=== PATIENT | female | born 1950 | race Caucasian/White ===

== ENCOUNTER 2022-04-01 15:08 | Outpatient (CLI) | payer MEDICARE, SELFPAY ==
--- NOTE | 2022-04-01 15:32 | XRR_ITS ---
PROCEDURE INFORMATION: Exam: XR Chest Exam date and time: 04/01/2022 3:32 PM Age: 71 years old Clinical indication: Cough; Prior surgery; Surgery type: Port; Patient HX: History of lung cancer TECHNIQUE: Imaging protocol: XR of the chest. Views: 2 views. COMPARISON: No relevant prior studies available. FINDINGS: Tubes, catheters and devices: Left Port-A-Cath. Lungs: Right hilar to upper lobe airspace opacities with bronchiectasis may reflect provided history of lung cancer, chest CT could further evaluate this. Emphysematous changes. Pleural spaces: Unremarkable. No pleural effusion. No pneumothorax. Heart/Mediastinum: Unremarkable. No cardiomegaly. Bones/joints: Unremarkable. XR/XR chest 2V* [id number] IMPRESSION: 1. Right hilar to upper lobe airspace opacities with bronchiectasis may reflect provided history of lung cancer, chest CT could further evaluate this. 2. Emphysematous changes.
== END 2022-04-01 15:09 | disposition home or self-care (01) ==
LOC: RAD 15:15
PROVIDERS: Visit Provider Nurse Practitioner Family
DX: R05.9 Cough, unspecified (principal)
CPT/HCPCS: 71046

== ENCOUNTER 2023-05-24 21:24 | Emergency (ER) | payer MEDICARE, SELFPAY ==
--- NOTE | 2023-05-24 21:25 | XRR_ITS ---
PROCEDURE INFORMATION: Exam: XR Abdomen Exam date and time: 05/24/2023 10:02 PM Age: 72 years old Clinical indication: Constipation TECHNIQUE: Imaging protocol: Radiologic exam of the abdomen. Views: Frontal supine view of the abdomen. 1 View. COMPARISON: CR XR chest 2V* [id number] 04/01/2022 3:32 PM FINDINGS: Gastrointestinal tract: Constipation without bowel dilation to indicate obstruction. Bones/joints: Unremarkable. XR/XR KUB [id number] IMPRESSION: Constipation without bowel dilation to indicate obstruction.
[2023-05-24 21:53] VITALS: BP 96/64; PULSE 96; RESP 16; TEMP 36.7; O2SAT 94; BMI 21.1
[2023-05-24 21:59] VITALS: RESP 85; O2SAT 99
--- NOTE | 2023-05-24 22:59 | W.ED.ABDPA2 ---
HPI - Abdominal Pain General: Chief Complaint: Abdominal Pain Stated Complaint: no bm for 4 days Time Seen by Provider: 05/24/23 21:35 History of Present Illness: 72-year-old female comes in today with no bowel movement for the last 4 days. Patient has small cell carcinoma of the lung and has been recently started on some chemotherapy. Patient believes the chemotherapy is causing her to have some constipation. Patient also occasionally uses OxyContin for her pain. Patient appears nontoxic. Patient appears in no pain at this time. Associated Symptoms: Reports constipation; Denies fever(s) Review of Systems Const: Denies: fever(s) GI: Reports: constipation PFSH ED PFSH: Social History Smoking and tobacco status: current every day smoker Physical Exam Const: COMMON NORMALS: alert HENMT: COMMON NORMALS: normocephalic HEAD & SCALP: normocephalic MOUTH: Normal oral and palatal mucosa present Neck/C-Spine: COMMON NORMALS: full ROM Resp: COMMON NORMALS: normal respiratory effort and clear to auscultation bilaterally AUSCULTATION: clear to auscultation bilaterally Cardio: COMMON NORMALS: regular rate and regular rhythm RATE: regular rate RHYTHM: regular rhythm GI: COMMON NORMALS: Soft to palpation AUSCULTATION: Yes normoactive bowel sounds PALPATION: Yes Soft to palpation and No Tenderness to palpation present (GI) PERCUSSION: normal to percussion Back/Pelvis: COMMON NORMALS: thoracic and lumbar spine normal to inspection Extremity: COMMON NORMALS: normal to inspection Neuro: SENSORIUM/ORIENTATION: Yes alert Skin: COMMON NORMALS: turgor normal GENERAL SKIN EXAM: turgor normal Course Vital Signs: Vital signs: Vital Signs Temperature 98.1 F 05/24/23 21:53 Pulse Rate 96 05/24/23 21:53 Respiratory Rate 85 H 05/24/23 21:59 Blood Pressure 96/64 05/24/23 21:53 Pulse Oximetry 99 05/24/23 21:59 Oxygen Delivery Me thod Room Air 05/24/23 21:59 MDM - Abdominal Pain Medical Decision Making Patient comes in today with constipation x4-day and bowel discomfort. Patient appears nontoxic. Patient appears in no pain. On exam abdomen soft with some normal active bowel sounds. Skin is warm and dry. Vital signs are normal. Differential diagnosis includes bowel obstruction, dehydration, constipation, impaction. KUB noted moderate constipation. Laboratory values were unremarkable. Reviewed exam with patient recommended lactulose as needed for constipation. Patient was also given 1 dose of methadone magnesia and 1 dose of lactulose in the ER. Patient was recommended to follow-up with specialist regarding her concerns for the chemotherapy drug causing the constipation and to discuss if there is other options that may be helpful for the constipation. Patient stated understanding and agreed to plan. Lab Data 05/24/23 22:40 Labs/Radiology: Radiology Impressions KUB X-Ray 05/24/23 21:25 IMPRESSION: Constipation without bowel dilation to indicate obstruction. Laboratory Results Sodium 134 mmol/L (136-145) L 05/24/23 22:40 Potassium 4.5 mmol/L (3.5-5.1) 05/24/23 22:40 Chloride 101 mmol/L (98-107) 05/24/23 22:40 Carbon Dioxide 24 mmol/L (22-29) 05/24/23 22:40 Anion Gap 13.5 (5-19) 05/24/23 22:40 BUN 16 mg/dL (8-23) 05/24/23 22:40 Creatinine 1.0 mg/dL (0.5-0.9) H 05/24/23 22:40 GFR Calculation Not Reportable 05/24/23 22:40 Glucose 93 mg/dL (65-115) 05/24/23 22:40 Calculated Osmolality 279 mOsm/kg (285-295) L 05/24/23 22:40 Calcium 9.0 mg/dL (8.5-10.5) 05/24/23 22:40 Total Bilirubin 0.2 mg/dL (0.15-1.2) 05/24/23 22:40 AST 25 U/L (0-32) 05/24/23 22:40 ALT 36 U/L (0-33) H 05/24/23 22:40 Alkaline Phosphatase 73 U/L (35-105) 05/24/23 22:40 Total Protein 6.8 g/dL (6.6-8.7) 05/24/23 22:40 Albumin 3.8 g/dL (3.5-5.2) 05/24/23 22:40 Globulin 3.0 g/dL (1.3-4.6) 05/24/23 22:40 Urine Color Light yellow (Yellow) 05/24/23 22:55 Urine Appearance Clear (CLEAR) 05/24/23 22:55 Urine pH 7 (5-7) 05/24/23 22:55 Ur Specific [place] 1.005 (1.005-1.030) 05/24/23 22:55 Urine Protein Neg (Negative) 05/24/23 22:55 Urine Glucose (UA) Norm (Normal) 05/24/23 22:55 Urine Ketones Negative (Negative) 05/24/23 22:55 Urine Blood Neg (Negative) 05/24/23 22:55 Urine Nitrate Negative (Negative) 05/24/23 22:55 Urine Bilirubin Neg (Negative) 05/24/23 22:55 Urine Urobilinogen Norm mg/dL (Negative) 05/24/23 22:55 Ur Leukocyte Esterase Negative (Negative) 05/24/23 22:55 Discharge Plan Discharge Patient Disposition: Home Clinical Impression: Constipation Condition: Stable Prescriptions: New lactulose 10 gram/15 mL solution 20 g PO BID PRN (Reason: constipation) Qty: 237 0RF No Action ondansetron 4 mg tablet,disintegrating 4 mg PO Q8H PRN (Reason: nausea and vomiting) Qty: 20 0RF Discharge Orders: Discharge ED (Routine); Ordered 05/24/23 Ordered By: Teddy López Referrals: Natali Wyman DO [Primary Care Provider] - Discharge Diet: Usual diet Discharge Activity: Increase activity as tolerated Patient Instructions: Constipation (ED) Activity Restrictions/Additional Instructions: Drink plenty of water and fluids. Continue with lactulose 30 mL twice a day as needed for constipation. Eat a diet rich in fibers foods and plenty of fresh fruits and vegetables. Follow-up with primary care for further instructions. Return to emergency department for worsening symptoms such as high fever, blood in vomit or stool, or new concerns. Coding Level of Care Code ED Finance Insurance Manager for Pradeep Prabhakar
[2023-05-24 23:11] LABS: Add Urine Microscopic? NO; Charge for UA Resulting for Rev
[2023-05-24 23:16] LABS: Alanine Aminotransferase 36 U/L (0-33); Albumin Level 3.8 g/dL (3.5-5.2); Alkaline Phosphatase 73 U/L (35-105); Aspartate Amino Transferase 25 U/L (0-32); Blood Urea Nitrogen 16 mg/dL (8-23); Carbon Dioxide 24 mmol/L (22-29); Chloride 101 mmol/L (98-107); Glucose 93 mg/dL (65-115); Osmolality Calculated 279 mOsm/kg (285-295); Sodium 134 mmol/L (136-145); Total Bilirubin 0.2 mg/dL (0.15-1.2); Total Protein 6.8 g/dL (6.6-8.7)
[2023-05-24 23:24] LABS: Bilirubin Urine Neg (Negative); Blood Urine Neg (Negative); Glucose Urine UA Norm (Normal); Ketones Urine Negative (Negative); Leukocyte Esterase Urine Negative (Negative); Nitrate Urine Negative (Negative); Protein Urine Neg (Negative); Specific Gravity, Urine 1.005 (1.005-1.030); Urine Appearance Clear (CLEAR); Urine Color Light yellow (Yellow); Urobilinogen Urine Norm (Negative); pH Urine 7 (5-7)
[2023-05-24 23:28] LABS: Anion Gap 13.5 (5-19); Potassium 4.5 mmol/L (3.5-5.1)
[2023-05-24 23:41] VITALS: BP 104/71; PULSE 84; RESP 14; O2SAT 94
[2023-05-24] MEDS: magnesium hydroxide 30 mL UDC PO (23:41)
[2023-05-24] MEDS: lactulose oral liq 20 gm/30 mL UDC PO (23:41)
== END 2023-05-24 23:44 | disposition home or self-care (01) ==
PROVIDERS: Emergency Provider Nurse Practitioner Family; PCP Family Medicine
DX: K59.00 Constipation, unspecified (principal); F17.210 Nicotine dependence, cigarettes, uncomplicated; C34.90 Malignant neoplasm of unspecified part of unspecified bronchus or lung; Z79.60 Long term (current) use of unspecified immunomodulators and immunosuppressants
CPT/HCPCS: 36415; 74018; 80053; 81003; 99284

== ENCOUNTER 2023-10-10 11:01 | Inpatient (IN) | payer MEDICARE, SELFPAY ==
[2023-10-10] VITALS (17 sets, daily range): BP systolic 118–133; BP diastolic 86–90; PULSE 85–137; RESP 15–26; TEMP 35.7–36.8; O2SAT 93–100; BMI 19.8; BMI 22.4
--- NOTE | 2023-10-10 11:05 | XR_ITS ---
WS: [id number] PORTABLE CHEST HISTORY: sob, history of lung cancer. COMPARISON: 04/01/2022 LEFT subclavian central line. Greater than 50% obscuration of the RIGHT lung. Dense area of consolidation throughout the majority o f the RIGHT thorax. There is increased RIGHT paratracheal soft tissue. There is also slight shift of the mediastinal structures to the RIGHT. Mild hazy opacification at the LEFT lung base. No pneumothor ax. Cardiac size: Obscured by the dense consolidation in the RIGHT thorax. Mediastinum/Aorta: RIGHT paratracheal increased soft tissue. No osseous abnormality seen. IMPRESSION: 1. Since the prior examination of 04/01/2022 increased consolidation throughout a large portion of the RIGHT thorax. Probably combination of atelectasis, pleural fluid. Pneumonia and neoplasm not excluded . Chest CT with IV contrast would be beneficial 2. RIGHT paratracheal increased soft tissue. Adenopathy and neoplasm and atelectasis within the diffe rential. 3. No pneumothorax.
--- NOTE | 2023-10-10 11:11 | ED_ITS ---
HPI - SOB/Dyspnea 2 General: Chief Complaint: Shortness of Breath/Dyspnea Stated Complaint: sob, low o2, lung cancer Time Seen by Provider: 10/10/23 11:03 Source: patient Mode of arrival: ambulatory Limitations: no limitations History of Present Illness: HPI Narrative: 73-year-old female who has a history of lung cancer is a chronic smoker she states she is not on chemo or radiation at this time she states that she has had increasing shortness of breath of the last 2 days with much increased today. Patient was in the 60s here when she arrived with her pulse ox. She is in distress she is currently on a nonrebreather she denies any fevers states she has had a cough but she is having extreme dyspnea. Associated symptoms: Deny abdominal pain, chest pain, fever(s), nausea or vomiting Review of Systems 2 Const: Denies: fever(s), chills, body aches or change in appetite ENMT: Denies: throat pain or dental pain Card: Denies: chest pain Resp: Reports: dyspnea and non-productive cough GI: Denies: abdominal pain, nausea, vomiting or diarrhea Musc: Denies: neck pain or back pain Skin/Breast: Denies: rash Neuro: Denies: headache(s) PFSH ED 2 PFSH: Social History Smoking and tobacco/nicotine status: current every day tobacco/nicotine user Physical Exam 2 Const: COMMON NORMALS: patient oriented x3 GENERAL APPEARANCE: in distress HENMT: COMMON NORMALS: normocephalic and atraumatic HEAD & SCALP: n ormocephalic and atraumatic Eye: COMMON NORMALS: Equal, round and reactive pupils present and EOMs intact bilaterally PUPIL: Yes Equal, round and reactive pupils present Neck/C-Spine: COMMON NORMALS: full ROM and supple Chest: COMMONS NORMALS: normal inspection of the chest and normal palpation of entire chest wall Resp: EFFORT & INSPECTION: Yes tachypneic and Yes respiratory distress A USCULTATION: wheezes Cardio: COMMON NORMALS: regular rhythm and No murmurs present (Cardio) R ATE: tachycardic RHYTHM: regular rhythm GI: COMMON NORMALS: Normal to inspection, nondistended, normoactive bowel sounds present, Soft to palpation, non-tender and no masses PALPATION: Yes Soft to palpation Extremity: COMMON NORMALS: normal to inspection and full ROM Neuro: COMMON NORMALS: patient oriented x3, moves all extremities and no focal motor deficits Psych: COMMON NORMALS: mental status grossly normal, Normal thought process present and cooperative THOUGHT PROCESS: Normal thought process present Skin: COMMON NORMALS: no rashes or lesions noted and no wounds GENERAL SKIN EXAM: no rashes or lesions noted Course 2 Vital Signs: Vital signs: Vital Signs Temperature 96.2 F L 10/10/23 11:03 Pulse Rate 109 H 10/10/23 11:42 Respiratory Rate 21 H 10/10/23 11:22 Pulse Oximetry 100 10/10/23 11:42 Oxygen Delivery Me thod BiPAP 10/10/23 11:22 Fraction of Inspir ed Oxygen 50 10/10/23 11:42 MDM - SOB/Dyspnea Medical Decision Making Patient presents here with dyspnea she had to be placed on BiPAP due to severe hypoxia she is improved greatly here on BiPAP x-ray does show a very large pleural effusion she does have a history of cancer will start on IV antibiotics I spoke to the hospitalist and will admit at this time. Medical Records I reviewed the patient's medical records. Lab Data I reviewed the patient's lab results. 10/10/23 11:15 10/10/23 11:15 Labs/Radiology: Laboratory Results WBC 7.88 10^3/uL (3.29-11.43) 10/10/23 11:15 RBC 4.07 10^6/uL (3.85-5.65) 10/10/23 11:15 Hgb 11.70 g/dL (11.27-16.99) 10/10/23 11:15 Hct 37.4 % (36-47) 10/10/23 11:15 MCV 91.9 fl (85-98) 10/10/23 11:15 MCH 28.7 pg (27-33) 10/10/23 11:15 MCHC 31.3 g/dL (30-55) 10/10/23 11:15 RDW 15.9 % (12.1-15.1) H 10/10/23 11:15 Plt Count 350 10^3/cmm (157-399) 10/10/23 11:15 MPV 10.4 fL (7.4-10.4) 10/10/23 11:15 Neut % (Auto) 83.3 % 10/10/23 11:15 Lymph % (Auto) 7.9 % 10/10/23 11:15 Crowley % (Auto) 7.7 % 10/10/23 11:15 Eos % (Auto) 0.3 % 10/10/23 11:15 Baso % (Auto) 0.4 % 10/10/23 11:15 Neut # (Auto) 6.57 10^3/uL (1.8-7.7) 10/10/23 11:15 Lymph # (Auto) 0.6 10^3/uL (0.8-4.8) L 10/10/23 11:15 Crowley # (Auto) 0.6 10^3/uL (0.2-0.9) 10/10/23 11:15 Eos # (Auto) 0.0 10^3/uL (0.0-0.8) 10/10/23 11:15 Baso # (Auto) 0.0 10^3/uL (0.0-0.1) 10/10/23 11:15 Nucleated RBC % (auto) 0 % 10/10/23 11:15 Nucleated RBCs # 0.0 /100WBC 10/10/23 11:15 PT 14.10 SECONDS (12.1-14.9) 10/10/23 11:15 INR 1.06 (0.8-1.2) 10/10/23 11:15 Specimen Type Venous 10/10/23 11:02 Sample Site Radial, left 10/10/23 11:02 ABG pH 7.36 (7.35-7.45) 10/10/23 11:02 ABG pCO2 42.9 mmHg (35-45) 10/10/23 11:02 ABG pO2 47.5 mmHg (80.0-100.0) L 10/10/23 11:02 ABG PO2/FiO2 Ratio 0 10/10/23 11:02 ABG HCO3 24.2 mmol/L (22-26) 10/10/23 11:02 ABG Base Excess -1.4 mmol/L (-2.0-2.0) 10/10/23 11:02 García Test Pos 10/10/23 11:02 Hematocrit 37.7 % (37-47) 10/10/23 11:02 Hgb O2 Saturation 79.1 % (95-100) L 10/10/23 11:02 Carboxyhemoglobin 3.9 %THgb (0.4-20.1) 10/10/23 11:02 Methemoglobin 0.5 % (0.4-1.5) 10/10/23 11:02 Total Hemoglobin 12.3 g/dL (12-16) 10/10/23 11:02 O2 Delivery Device Bipap 10/10/23 11:02 FiO2 90.0 % 10/10/23 11:02 Photoengraving Proofer ID [place] 10/10/23 11:02 Sodium 134 mmol/L (136-145) L 10/10/23 11:15 Potassium 3.7 mmol/L (3.5-5.1) 10/10/23 11:15 Chloride 97 mmol/L (98-107) L 10/10/23 11:15 Carbon Dioxide 23 mmol/L (22-29) 10/10/23 11:15 Anion Gap 17.7 (5-19) 10/10/23 11:15 BUN 14 mg/dL (8-23) 10/10/23 11:15 Creatinine 0.8 mg/dL (0.5-0.9) 10/10/23 11:15 GFR Calculation Not Reportable 10/10/23 11:15 Glucose 178 mg/dL (65-115) H 10/10/23 11:15 Calculated Osmolality 283 mOsm/kg (285-295) L 10/10/23 11:15 Calcium 9.4 mg/dL (8.5-10.5) 10/10/23 11:15 Total Bilirubin 0.3 mg/dL (0.15-1.2) 10/10/23 11:15 AST 18 U/L (0-32) 10/10/23 11:15 ALT 11 U/L (0-33) 10/10/23 11:15 Alkaline Phosphatase 83 U/L (35-105) 10/10/23 11:15 NT-Pro-B Natriuret Pep 609 pg/mL (0-450) H 10/10/23 11:15 Total Protein 6.9 g/dL (6.6-8.7) 10/10/23 11:15 Albumin 3.4 g/dL (3.5-5.2) L 10/10/23 11:15 Globulin 3.5 g/dL (1.3-4.6) 10/10/23 11:15 Influenza Type A Ag negative (Negative) 10/10/23 11:16 Influenza Type B Ag negative (Negative) 10/10/23 11:16 SARS-CoV-2 Ag (Rapid) negative (Negative) 10/10/23 11:16 All radiology interpretation(s) finalized by discharge EKG Data EKG 1: I personally reviewed and interpreted this EKG as follows: EKG Interpretation Date: 10/10/23 EKG interpretation time: 11:47 Interpretation: sinus tach hr [address] or t wave abnormalities qrs 91 qtc 378 Critical Care Time 2 Critical Care Time: Critical Care Time: Yes Total Critical Care Time: 40 Attestation: The high probability of a clinically significant, sudden or life threatening deterioration of the patient's resp system(s) required my full and direct attention, intervention and personal management. The critical care time is as shown. This time is in addition to time spent performing any reported procedures but includes the following: [x] Data and vital sign review and interpretation [x] Patient assessment, examination and intervention [x] Documentation [x] Medication orders and management Discharge Plan Discharge Admit Provider: Batsheva Maki Condition: Stable Prescriptions: No Action oxycodone 5 mg tablet 5 - 10 mg PO BID PRN (Reason: Pain) Coding Level of Care Code ED Mergers [employer] Acquisitions Associate for Pradeep Prabhakar
--- NOTE | 2023-10-10 11:15 | PC.PHAR ---
NEENA AT [facility] PT PICKED UP #[id number] OXYCODONE IR 5 MG ON 10/07/2023
[2023-10-10] MEDS: methylPREDNISolone sod succ 125 mg/2 mL INJ IV (11:21)
[2023-10-10] MEDS: albuterol 2.5 mg/3 mL Neb INHALATION (11:22)
[2023-10-10] MEDS: ipratropium-albuterol 3 mL Neb INHALATION ×4 (11:22→23:44)
[2023-10-10 11:29] LABS: ABG PCO2 42.9 mmHg (35-45); ABG PH Result 7.36 (7.35-7.45); Arterial Blood Gas Hematocrit 37.7 % (37-47); Base Excess ABG -1.4 mmol/L (-2.0-2.0); Blood Gas Allen Test Pos; Blood Gas Operator Identificat MONRO; Blood Gas Sample Site Radial, left; Carboxyhemoglobin 3.9 %THgb (0.4-20.1); HCO3 ABG 24.2 mmol/L (22-26); HGB O2 Sat 79.1 % (95-100); Methemoglobin 0.5 % (0.4-1.5); Oxygen Device BIPAP; PO2 ABG 47.5 mmHg (80.0-100.0); PO2 FiO2 Ratio Arterial Blood 0; Total Hemoglobin 12.3 g/dL (12-16)
[2023-10-10 11:32] LABS: Basophils % 0.4 %; Eosinophils % 0.3 %; Hematocrit 37.4 % (36-47); Lymphocytes # 0.6 10^3/uL (0.8-4.8); Lymphocytes % 7.9 %; Mean Corpuscular HGB Conc 31.3 g/dL (30-55); Mean Corpuscular Hemoglobin 28.7 pg (27-33); Mean Corpuscular Volume 91.9 fl (85-98); Mean Platelet Volume 10.4 fL (7.4-10.4); Monocytes # 0.6 10^3/uL (0.2-0.9); Monocytes % 7.7 %; Neutrophils # 6.57 10^3/uL (1.8-7.7); Neutrophils % 83.3 %; Nucleated Red Blood Cells % 0 %; Platelet Count 350 10^3/cmm (157-399); Red Blood Count 4.07 10^6/uL (3.85-5.65); Red Cell Distribution Width 15.9 % (12.1-15.1); White Blood Count 7.88 10^3/uL (3.29-11.43)
[2023-10-10 11:43] LABS: INR 1.06 (0.8-1.2)
--- NOTE | 2023-10-10 11:47 | ECG_ITS ---
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 Measurements Intervals [place] Rate: 107 P: 26 MA: 191 QRS: 96 QRSD: 91 T: 13 QT: 315 QTc: 422 Interpretive Statements SINUS TACHYCARDIA BORDERLINE RIGHT AXIS DEVIATION [QRS AXIS > 90] ABNORMAL RHYTHM ECG No previous ECG available for comparison Electronically Signed On 10-10-2023 15:56:12 GREASE RACK WORKER by Jaxon iDana M.D. [id number]
[2023-10-10 11:56] LABS: Influenza A by IFA negative (Negative); Influenza B by IFA negative (Negative); SARS Covid-2 Antigen negative (Negative)
[2023-10-10 12:03] LABS: Blood Gas Sample Type Venous
[2023-10-10 12:05] LABS: Alanine Aminotransferase 11 U/L (0-33); Albumin Level 3.4 g/dL (3.5-5.2); Alkaline Phosphatase 83 U/L (35-105); Blood Urea Nitrogen 14 mg/dL (8-23); Calcium 9.4 mg/dL (8.5-10.5); Carbon Dioxide 23 mmol/L (22-29); Chloride 97 mmol/L (98-107); Creatinine Clr Calc Pharmacy 45.7834; Globulin 3.5 g/dL (1.3-4.6); Glucose 178 mg/dL (65-115); NT Pro B Type Natriuretic Pept 609 pg/mL (0-450); Osmolality Calculated 283 mOsm/kg (285-295); Sodium 134 mmol/L (136-145); Total Bilirubin 0.3 mg/dL (0.15-1.2); Total Protein 6.9 g/dL (6.6-8.7)
[2023-10-10 12:30] LABS: Anion Gap 17.7 (5-19); Aspartate Amino Transferase 18 U/L (0-32); Potassium 3.7 mmol/L (3.5-5.1)
--- NOTE | 2023-10-10 14:01 | CTR_ITS ---
PROCEDURE INFORMATION: Exam: CTA Chest With Contrast Exam date and time: 10/10/2023 4:03 PM Age: 73 years old Clinical indication: Shortness of breath; Additional info: Large new pleural effusion, large right pleural effusion. Assess for underlying mass TECHNIQUE: Imaging protocol: Computed tomographic angiography of the chest with contrast. Exam focused on the arteries. 3D rendering (Not supervised by radiologist): MIP and/or 3D reconstructed images were created by the technologist. Radiation optimization: All CT scans at this facility use at least one of these dose optimization techniques: automated exposure control; mA and/or kV adjustment per patient size (includes targeted exams where dose is matched to clinical indication); or iterative reconstruction. Contrast material: OMNI 350; Contrast volume: 80 ml; Contrast route: INTRAVENOUS (IV); REPORTING DATA: Count of CT and Cardiac NM exams in prior 12 months: This patient has received 0 known CTs and 0 known cardiac nuclear medicine studies in the 12 months prior to the current study. COMPARISON: CR XR chest 1V portable [id number] 10/10/2023 11:28 AM RADIATION DOSE METRICS: Total DLP (mGy-cm): 292.61 FINDINGS: Pulmonary arteries: No central or segmental pulmonary emboli. Aorta: No aortic aneurysm or dissection. Lungs: Right middle and lower lobes almost entirely collapsed. Aerated portions of the right upper lung and left lung demonstrate no focal consolidation or suspicious nodule. In the right lower lung there is a 4.4 x 2.7 cm masslike density on series 6, image 336 for example. Masslike consolidation in the right suprahilar/paramediastinal region as well which is of different density than the adjacent atelectatic changes. Pleural spaces: No pneumothorax. No pleural effusion. Heart: Coronary calcifications. No pericardial effusion. Lymph nodes: 1.3 cm prevascular node on series 4, image 18 Bones/joints: No acute findings. Soft tissues: No acute findings. CT/CT angio chest PE protcl [id number] IMPRESSION: Large right sided pleural effusion. Right suprahilar paramediastinal and right lower lobe masslike densities are present. Recommend repeat CT after thoracentesis for improved characterization.
[2023-10-10] MEDS: azithromycin 500 MG in sodium chloride 0.9% 250 ML 250 MG IV (14:20)
[2023-10-10] MEDS: cefTRIAXone 1,000 MG in sodium chloride 0.9% (plus) 50 ML 100 MG IV (15:28)
[2023-10-10] MEDS: iohexol 350 mg/mL 500 mL Btl (per mL) IV (16:09)
--- NOTE | 2023-10-10 17:18 | P.HP_ITS ---
Providers/Chief Complaint 2 Admitting Physician: Batsheva Maki MD Primary Care Provider: Natali Wyman DO Chief Complaint: sob, low o2, lung cancer History of Present Illness See Van is a 73 year old female who presented to the ER today with c/o increasing shortness of breath over the past 4-5 days, History is very limited at this time. Patient is on Bipap and has a hard time talking, able to answer direct questions. She denies any fever, chills, expectoration, hemoptysis over this time frame. She was saturating 60% on RA on arrival to ER and required placement of Bipap due to increased work of breathing. She is found to have a large right pleural effusion on CXR. Patient denies any past h/o lung malignancy. She is a smoker. Denies past pleural effusion. 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 her is not currently available to provide any additional history. Review of Systems 2 General: Reports: ROS unobtainable due to medical condition Medications/Allergies Home Medications Medication Instructions Recorded Confirmed Last Taken Type oxycodone 5 mg tablet 5 - 10 mg PO BID PRN Pain 10/10/23 10/10/23 Unknown History Allergies Allergy/AdvReac Type Severity Reaction Status Date / Time Sulfa (Sulfonamide Allergy ADR-Vomitin Verified 10/10/23 11:03 Antibiotics) g PFSH Acute 2 PFSH: Social History Smoking and tobacco/nicotine status: current every day tobacco/nicotine user Vitals/I&O/Wt Last Vital Signs Temp 96.2 F L 10/10/23 11:03 Pulse 88 10/10/23 16:16 Resp 21 H 10/10/23 11:22 BP 125/90 10/10/23 13:18 Pulse Ox 98 10/10/23 16:16 O2 Del Method BiPAP 10/10/23 13:44 FiO2 40 10/10/23 16:16 10/10/23 10/10/23 10/10/23 06:59 14:59 22:59 Intake Total 300 / 300 Balance 300 / 300 Weight last 48 hrs Weight 53.751 kg Weight 47.627 kg Physical Exam 2 Narrative: General: Currently on a Bipap , lethargic, wakes up to answer her name and orientation questions, but unable to have a prolonged conversation. HEENT: PERRLA, pupils bilaterally equal and reactive, pallors not present Chest: reduced breath sounds right side , scattered crackles left lung CVS: S1-S2 regular, no murmurs, no tachycardia, no gallops, no rubs Abdomen: Soft, nontender, no organomegaly, bowel sounds present Neuro: No focal deficits, no facial deformity, AO x3, power 5/5 in all limbs Data 10/10/23 11:15 10/10/23 11:15 Micro: Microbiology 10/10/23 13:20 Blood Culture - Preliminary Blood SPECIMEN COLLECTED 10/10/23 13:16 Blood Culture - Preliminary Blood SPECIMEN COLLECTED ABG Interpretation 1: VBG 10/10/23 11:02 ABG pH 7.36 ABG pCO2 42.9 ABG pO2 47.5 L ABG HCO3 24.2 ABG Base Excess -1.4 Other data: CXR- large right pleural effusion A&P Assessment and plan (1) Pleural effusion on right: (2) Suspected lung cancer: (3) Hypoxic respiratory failure: Plan 73 F with no past history of known respiratory failure p/w 5 days of worsening dyspnea, found to have large right sided pleural effusion. Unknown past history at this time Profound hypoxia with Sp02 down to 60% on RA, needing Bipap ventilation due to concern for respiratory fatigue Able to be weaned down to 5lpm supplemental 02 however with minimal exertion of transferring from stretcher to chair needed placement of Bipap again. Differentials include underlying malignancy vs possible pneumonia Started on empiric CTX and azithromycin which can continue for now Chect CTA chest to evaluate for PE and underlying malignancy Diagnostic and therapeutic thoracentesis ordered Attestations 2 Medical Necessity Statement*: > 2 midnight admission is anticipated for acute hypoxic respiratory failure, large pleural effusion needing thoracentesis for diagnostics and relief of symptoms Coding Level of Care Code Acute Code for Chg Fwd Diagnoses Pleural effusion on right J90 Suspected lung cancer R68.89 Hypoxic respiratory failure J96.91
--- NOTE | 2023-10-10 22:50 | XRR_ITS ---
PROCEDURE INFORMATION: Exam: XR Abdomen Exam date and time: 10/11/2023 12:03 AM Age: 73 years old Clinical indication: Abdominal pain; Localized; Right lower quadrant (rlq); Patient HX: Rlq for couple weeks per patient TECHNIQUE: Imaging protocol: Radiologic exam of the abdomen. Views: Frontal supine view of the abdomen. 1 View. COMPARISON: CR XR KUB [id number] 05/24/2023 10:02 PM FINDINGS: Gastrointestinal tract: [id number] constipation without bowel dilation to indicate obstruction. Organs: Contrast in the urinary bladder in the renal collecting systems. Bones/joints: Unremarkable. XR/XR abdomen 1V* [id number] IMPRESSION: [id number] constipation without bowel dilation to indicate obstruction.
[2023-10-10] MEDS: morphine 4 mg/mL SDV 1 mL 1 MG IVP (23:49)
[2023-10-11] VITALS (19 sets, daily range): BP systolic 110–132; BP diastolic 68–82; PULSE 91–110; RESP 18–29; TEMP 36.3–36.8; O2SAT 91–97
[2023-10-11] MEDS: ipratropium-albuterol 3 mL Neb INHALATION ×5 (04:15→19:18)
[2023-10-11 05:11] LABS: Basophils % 0.1 %; Hematocrit 34.4 % (36-47); Lymphocytes # 0.6 10^3/uL (0.8-4.8); Lymphocytes % 8.8 %; Mean Corpuscular HGB Conc 32.3 g/dL (30-55); Mean Corpuscular Hemoglobin 29.3 pg (27-33); Mean Corpuscular Volume 90.8 fl (85-98); Mean Platelet Volume 10.1 fL (7.4-10.4); Monocytes # 0.7 10^3/uL (0.2-0.9); Monocytes % 10.4 %; Neutrophils # 5.63 10^3/uL (1.8-7.7); Neutrophils % 80.4 %; Nucleated Red Blood Cells % 0 %; Platelet Count 347 10^3/cmm (157-399); Red Blood Count 3.79 10^6/uL (3.85-5.65); Red Cell Distribution Width 16.1 % (12.1-15.1); White Blood Count 7.01 10^3/uL (3.29-11.43)
[2023-10-11 05:31] LABS: Alanine Aminotransferase 15 U/L (0-33); Albumin Level 3.2 g/dL (3.5-5.2); Alkaline Phosphatase 77 U/L (35-105); Aspartate Amino Transferase 19 U/L (0-32); Blood Urea Nitrogen 11 mg/dL (8-23); Calcium 9.4 mg/dL (8.5-10.5); Carbon Dioxide 24 mmol/L (22-29); Chloride 99 mmol/L (98-107); Globulin 3.1 g/dL (1.3-4.6); Glucose 124 mg/dL (65-115); Lactate Dehydrogenase 274 U/L (135-214); Osmolality Calculated 285 mOsm/kg (285-295); Sodium 137 mmol/L (136-145); Total Bilirubin 0.2 mg/dL (0.15-1.2); Total Protein 6.3 g/dL (6.6-8.7)
[2023-10-11] MEDS: pantoprazole DR 40 mg Tablet PO (08:56)
[2023-10-11] MEDS: sennosides-docusate Tablet 2 TAB PO (08:56)
[2023-10-11] MEDS: azithromycin 250 mg Tablet 500 MG PO (08:56)
--- NOTE | 2023-10-11 09:05 | PC.CHAP ---
Pastoral Care Encounter/Spiritual Assessment Type of Contact [] Declined housing and residence life director visit [] Patient/Family/Request visit [] Outpatient visit [] Follow-up visit [] Physician referral [] Code/Alert [] Routine visit [] Staff referral [] Actively dying [] Patient sleeping [] Family support [] [] Out of room [] Palliative care [] [] Receiving care in room [] Pre-surgical visit [] Trauma [] Long length of stay [] ICU visit [x] Other:Covid. No visit. Relational/Emotional Strength [] Patient feels connected with others/family/visitors/staff [] Distress [] Loneliness/isolation [] Abandonment Spirituality of Patient [] Person of Op[place] [] Attends Latter-Day of their [place] [] Believes in Prayer [] Reads Bible or Scientologist materials [] There are Spiritual issues to be addressed Grain Elevator Agent Interventions [] Prayer [] Active listening [] Non-anxious presence [] Spiritual/emotional support [] Crisis/trauma care [] Spiritual counseling [] Bereavement support [] Provided bereavement packet [] Provided Bible/devotional materials [] Provided toy/stuffed animal, coloring book to patient or family member [] Provided Communion [] Anointing/[place] [] Salvation [] Completed spiritual assessment [] Other: Impact on Illness or Injury [] Angry [] Fearful [] Anxious [] Often cries [] Exhaustion [] Unable to work [] Unable to attend christianity [] Unable to walk/stand [] Unable to read [] Unable to drive [] Unable to eat/drink [] Unable to sleep [] Unable to be with family [] Patient intubated [] Other: Summary Time spent with patient
--- NOTE | 2023-10-11 10:52 | XR_ITS ---
WS: [id number] PORTABLE CHEST HISTORY: Post thoracentesis COMPARISON: 10/10/2023 No pneumothorax status post RIGHT thoracentesis. Slightly better aeration throughout the RIGHT lung. There are still small layering RIGHT pleural effu juan jose. Hazy attenuation throughout the RIGHT lung. Chronic emphysematous changes LEFT lung. Cardiac size: Normal. Mediastinum/Aorta: RIGHT paratracheal soft tissue mass. There is an area of increased attenuation whi ch is masslike. No osseous abnormality seen. IMPRESSION: 1. No pneumothorax status post RIGHT thoracentesis. 2. Better aeration throughout the RIGHT lung. There is now hazy attenuation throughout the lung and a small residual RIGHT pleural effusion. The hazy attenuation may all be atelectasis. Reexpansion pulm onary edema should be considered due to the change in the lung appearance. 3. RIGHT paratracheal soft tissue suspicious for mass.
[2023-10-11 11:48] LABS: Creatinine Body Fluid 0.49 (0.5-0.9); Cyto Order Verification Order Verified
[2023-10-11 11:49] LABS: Total Protein Pleural Fluid 3.7 g/dL
[2023-10-11 11:53] LABS: LDH Pleural Fluid 336 U/L
--- NOTE | 2023-10-11 14:01 | US_ITS ---
WS: [id number] ULTRASOUND-GUIDED THORACENTESIS, RIGHT HISTORY: large right pleural effusion Procedure, risks, and complications were explained to the patient. With the patient in an upright pos ition, the skin over the RIGHT posterior thorax was cleansed with ChloraPrep and anesthetized with 1% buffered lidocaine. A 5 Citizen Of [place] Yueh needle is inserted into the pleural fluid without complication. Approximately 1200 cc of clear yellow pleural fluid is removed without difficulty. Specimen collected for analysis as requested. IMPRESSION: 1. RIGHT thoracentesis yielding 1200 cc of fluid. 2. Chest radiograph to follow to evaluate for pneumothorax.
[2023-10-11] MEDS: cefTRIAXone 1,000 MG in sodium chloride 0.9% (plus) 50 ML 100 MG IV (16:16)
[2023-10-11] MEDS: acetaminophen 325 mg Tablet 650 MG PO (16:17)
--- NOTE | 2023-10-11 17:09 | P.PN_ITS ---
Subjective 2 Subjective: Status post thoracentesis today yielding 1200 cc fluid. Exudative exudative fluid per lights criteria. Cytology pending. LDH not significantly elevated. pH normal. Per additional history obtained today, patient has a history of lung cancer on the right side. She is under treatment at outside hospital in [facility]. Records have been requested. Patient states that she has not been on chemotherapy in many months, however unable to tell me if she was taken off due to progression of cancer versus inability to get the medication. She states she does not want to go back to [place] for her cancer treatment and wants a referral to our cancer center here. She has never had a pleural effusion before. Discussed with her that should this director of outpatient services to be malignant effusion it corresponds with worsening disease however without having prior records I am unable to say this with certainty. Discontinue antibiotics today in light of updated history. likely this effusion is malignant. Medications: Reviewed: Yes Vitals/I&O/Wt Last Vital Signs Temp 97.5 F L 10/11/23 11:59 Pulse 93 10/11/23 15:29 Resp 22 H 10/11/23 15:29 BP 112/68 10/11/23 11:59 Pulse Ox 94 10/11/23 15:29 O2 Del Method Nasal Cannula 10/11/23 15:29 O2 Flow Rate 5 10/11/23 15:20 FiO2 40 10/11/23 04:15 10/11/23 10/11/23 10/11/23 06:59 14:59 22:59 Intake Total 600 / 600 50 / 650 Balance 600 / 600 50 / 650 Weight last 48 hrs Weight 56.387 kg Weight 53.751 kg Weight 47.627 kg Physical Exam 2 Narrative: General: No acute distress, AO x3 HEENT: PERRLA, pupils bilaterally equal and reactive, pallors not present Chest: Normal vesicular breath sounds, no added sounds, equal good air entry bilaterally CVS: S1-S2 regular, no murmurs, no tachycardia, no gallops, no rubs Abdomen: Soft, nontender, no organomegaly, bowel sounds present Neuro: No focal deficits, no facial deformity, AO x3, power 5/5 in all limbs Data 10/11/23 04:42 10/11/23 04:42 Micro: Microbiology 10/10/23 13:20 Blood Culture - Preliminary Blood NEGATIVE TO DATE 10/10/23 13:16 Blood Culture - Preliminary Blood NEGATIVE TO DATE A&P Assessment and plan (1) Pleural effusion on right: (2) Suspected lung cancer: (3) Hypoxic respiratory failure: Plan 73 F with reported history of lung cancer of the right lung under treatment from cancer center in [facility]. Unable to state what treatment she is on however does states she has not had any chemotherapy in several months. She is status post thoracentesis today yielding 1200 cc of fluid. Exudative effusion per lights criteria. Patient is doing much better with regards to her respiratory status since undergoing thoracentesis. She is currently on a nasal cannula with supplemental O2 at 4 L/min. Has not needed BiPAP since her thoracentesis. She is much more alert awake and cooperative. Suspect this effusion to be malignant in nature, awaiting cytology. Discontinue antibiotics given updated history of known malignancy. Attestations 2 Medical Necessity Statement*: Status post thoracentesis today. Anticipate discharge tomorrow if respiratory status remains stable Coding Level of Care Code Acute Code for Chg Fwd Moderate MDM includes number and complexity of problems actively addressed during encounter, amount and/or complexity of data reviewed/ordered and described risk of complication, morbidity or mortality of management as documented Diagnoses Pleural effusion on right J90 Suspected lung cancer R68.89 Hypoxic respiratory failure J96.91
[2023-10-11] MEDS: oxyCODONE 5 mg IR Tab/Cap PO (17:45)
[2023-10-12] VITALS (13 sets, daily range): BP systolic 108–125; BP diastolic 68–74; PULSE 86–100; RESP 17–22; TEMP 36.4–36.8; O2SAT 87–99
[2023-10-12] MEDS: ipratropium-albuterol 3 mL Neb INHALATION ×3 (00:32→07:30)
[2023-10-12] MEDS: acetaminophen 325 mg Tablet 650 MG PO ×2 (01:04→12:39)
--- NOTE | 2023-10-12 04:24 | PC.NURSE ---
This nurse was called to the patient room with the c/o the patient refusing her nasal canula. The patient was stating the oxygen is poison and it is going to kill her. We attempted multiple approaches to convince her that there was no poison present. She was reluctant, but agreed to try using a different nc and flowmeter. When asked if it was still poison, she stated I'll let you know when I . Prior to this the patient has been compliant with wearing oxygen and A&Ox4. The patient is still alert and oriented, aside from this. Dr. Lira called and notified of this and ordered a STAT ABG. Orders placed and awaiting draw.
--- NOTE | 2023-10-12 04:30 | PC.NURSE ---
See nurse's note prior to this. Patient is refusing o2 and claiming it is poison. Reluctantly the patient agreed to wear the nc
[2023-10-12 04:46] LABS: ABG PCO2 38.2 mmHg (35-45); ABG PH Result 7.46 (7.35-7.45); Alveolar-Arterial Oxygen Gradi 5.5 mmHg (5-10); Arterial Blood Gas Hematocrit 34.4 % (37-47); Base Excess ABG 3.1 mmol/L (-2.0-2.0); Blood Gas Allen Test Pos; Blood Gas Sample Site Radial, right; Blood Gas Sample Type Arterial; Carboxyhemoglobin 1.2 %THgb (0.4-20.1); HCO3 ABG 27.1 mmol/L (22-26); HGB O2 Sat 91.3 % (95-100); Ionized Calcium Level - ABG 1.2 mmol/L (1.1-1.4); Methemoglobin 0.4 % (0.4-1.5); Oxygen Device NC; Oxygen Saturation ABG 92.8; PO2 ABG 63.3 mmHg (80.0-100.0); Potassium Level - ABG 3.2 mmol/L (3.5-5.0); Total Hemoglobin 11.2 g/dL (12-16)
[2023-10-12] MEDS: oxyCODONE 5 mg IR Tab/Cap PO (08:35)
[2023-10-12] MEDS: sennosides-docusate Tablet 2 TAB PO (08:35)
[2023-10-12] MEDS: pantoprazole DR 40 mg Tablet PO (08:35)
--- NOTE | 2023-10-12 11:08 | PC.SOCIAL ---
Pg 2 IMM Explained to pt Pg 2 IMM. No questions voiced. Provided pt a copy. Initialed, dated, & timed a copy & placed in chart.
--- NOTE | 2023-10-12 12:35 | PM.DCS ---
Discharge Providers Date of Admission: 10/10/23 13:12 Date of Discharge: October 12, 2023 Attending Provider at Admission: Batsheva Maki MD Attending Provider at Discharge: Batsheva Maki MD Primary Care Provider: Natali yWman DO Diagnoses at Discharge Discharge Diagnosis (1) Pleural effusion on right: Status: Acute (2) Hypoxic respiratory failure: Status: Acute (3) Squamous cell lung cancer: Status: Acute Reason for Visit Reason for Visit: sob, low o2, lung cancer Hospital Course Hospital Course Additional records obtained at the time of discharge. Discharge summary relates most of the past history. Patient was unable to relay the timeline correctly. 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 She was first diagnosed with small cell carcinoma of the right upper lobe on May 12, 2021 by bronchoscopy and EBUS with classical features on path. She completed carboplatin etoposide chemotherapy on September 11, 2021 and received radiation treatment to the right lung between May 25, 2021 to July 14, 2021. By April 2022, CT showed interval development of a 2 cm base pleural-based soft tissue density along the right lung base. Carboplatin and etoposide chemotherapy was initiated again on July 13, 2022. She completed 5 cycles of this regimen on October 26, 2022. In October 2022 PET/CT showed no evidence of residual or recurrent metastatic disease. There was diffuse intramuscular hypermetabolic policy most likely thought to be related to improper penetration. In January 2023 she was detected to have increasing right paramediastinal soft tissue thickening and infiltrative opacity of the right lower lobe which was suspicious for recurrence. EBUS was performed on March 16, 2023 for a right upper lobe biopsy which showed changes consistent with radiation pneumonitis. In April 2023 there was interval development/enlargement of multiple soft tissue lesions within the right lung and findings consistent of recurrent neoplasm/metastatic disease. There was also interval development of multiple pleural placed regions on the right side consistent with metastatic disease and an associated small pleural effusion. MRI brain in July 2023 was without evidence of metastatic disease. She is currently on treatment with lurbinectedin which appears to have started on April 2023 , LD C7 on 09/26/23. I am uncertain as to why patient currently thinks she is not getting any treatment for her cancer. Her Her personal medical history as relayed by her has been patchy, not very forthcoming. She presented at [facility] on October 10, 2023 with 5 days of worsening dyspnea. She was found to have a large right-sided pleural effusion. CTA of the chest showed no PE, large right-sided effusion and right suprahilar paramediastinal and right lower lobe masslike densities. This most likely correlates to her known cancer. Highly suspect that her effusion is malignant as well. She underwent thoracentesis with removal of 1200 cc of pleural fluid on October 11, 2023. Respiratory status improved after thoracentesis. She was able to be weaned down from a BiPAP to 3 L/min supplemental O2 via nasal cannula. Supplemental O2 has been arranged at the time of discharge. Lights criteria with exudative effusion. Highly unlikely to be pneumonia. Most likely correlates with known malignancy. It appears effusion has been pre-existing at least since February 2023 per review of past records, worsened now. Cytology is pending at the time of discharge. She received antibiotics initially during her course here, however this was subsequently discontinued due to low suspicion for infective process at this time. She remained afebrile, hemodynamically stable, no leukocytosis. I highly recommended that she follow-up with her oncologist at [facility] in [facility], however she is refusing to go back to see her physicians there. She does not tell me a reason why. Instead she has asked me for a referral locally to see heme-onc at our center. Physical Exam Narrative: General: No acute distress, AO x3 HEENT: PERRLA, pupils bilaterally equal and reactive, pallors not present Chest: Normal vesicular breath sounds, no added sounds, equal good air entry bilaterally CVS: S1-S2 regular, no murmurs, no tachycardia, no gallops, no rubs Abdomen: Soft, nontender, no organomegaly, bowel sounds present Neuro: No focal deficits, no facial deformity, AO x3, power 5/5 in all limbs Discharge Data Studies Completed and Pending Completed Studies During Hospitalization Category Date Time Status CTA chest [CT angio chest PE protcl [id number]] Routine Cat Scan 10/10/23 14:01 Completed XR abdomen 1V* [id number] Stat Exams 10/10/23 22:50 Completed XR chest 1V portable [id number] Stat Exams 10/10/23 11:05 Completed XR chest 1V portable [id number] Stat Exams 10/11/23 10:52 Completed US thoracentesis [id number] Routine Ultrasound 10/11/23 14:01 Completed Pending at discharge Category Date Time Status Blood Culture Stat Lab 10/10/23 13:20 Results Body Fluid Culture & GS Routine Lab 10/10/23 10:55 Results Mycobacteria, Culture w/Fluor Routine Lab 10/10/23 10:55 Received Cytology [PTH] Routine Pth 10/10/23 14:02 Received Radiology Impressions Chest CTA 10/10/23 14:01 IMPRESSION: Large right sided pleural effusion. Right suprahilar paramediastinal and right lower lobe masslike densities are present. Recommend repeat CT after thoracentesis for improved characterization. Abdomen X-Ray 10/10/23 22:50 IMPRESSION: Pxxi-[id number] constipation without bowel dilation to indicate obstruction. Laboratory Results WBC 7.01 10^3/uL (3.29-11.43) 10/11/23 04:42 RBC 3.79 10^6/uL (3.85-5.65) L 10/11/23 04:42 Hgb 11.10 g/dL (11.27-16.99) L 10/11/23 04:42 Hct 34.4 % (36-47) L 10/11/23 04:42 MCV 90.8 fl (85-98) 10/11/23 04:42 MCH 29.3 pg (27-33) 10/11/23 04:42 MCHC 32.3 g/dL (30-55) 10/11/23 04:42 RDW 16.1 % (12.1-15.1) H 10/11/23 04:42 Plt Count 347 10^3/cmm (157-399) 10/11/23 04:42 MPV 10.1 fL (7.4-10.4) 10/11/23 04:42 Neut % (Auto) 80.4 % 10/11/23 04:42 Lymph % (Auto) 8.8 % 10/11/23 04:42 Shelby % (Auto) 10.4 % 10/11/23 04:42 Eos % (Auto) 0.0 % 10/11/23 04:42 Baso % (Auto) 0.1 % 10/11/23 04:42 Neut # (Auto) 5.63 10^3/uL (1.8-7.7) 10/11/23 04:42 Lymph # (Auto) 0.6 10^3/uL (0.8-4.8) L 10/11/23 04:42 [place] # (Auto) 0.7 10^3/uL (0.2-0.9) 10/11/23 04:42 Eos # (Auto) 0.0 10^3/uL (0.0-0.8) 10/11/23 04:42 Baso # (Auto) 0.0 10^3/uL (0.0-0.1) 10/11/23 04:42 Nucleated RBC % (auto) 0 % 10/11/23 04:42 Nucleated RBCs # 0.0 /100WBC 10/11/23 04:42 PT 14.10 SECONDS (12.1-14.9) 10/10/23 11:15 INR 1.06 (0.8-1.2) 10/10/23 11:15 Specimen Type Arterial 10/12/23 04:34 Sample Site Radial, right 10/12/23 04:34 ABG pH 7.46 (7.35-7.45) H 10/12/23 04:34 ABG pCO2 38.2 mmHg (35-45) 10/12/23 04:34 ABG pO2 63.3 mmHg (80.0-100.0) L 10/12/23 04:34 ABG PO2/FiO2 Ratio 0 10/10/23 11:02 ABG HCO3 27.1 mmol/L (22-26) H 10/12/23 04:34 ABG O2 Saturation 92.8 10/12/23 04:34 ABG Base Excess 3.1 mmol/L (-2.0-2.0) H 10/12/23 04:34 García Test Pos 10/12/23 04:34 A-a O2 Gradient 5.5 mmHg (5-10) 10/12/23 04:34 Hematocrit 34.4 % (37-47) L 10/12/23 04:34 Hgb O2 Saturation 91.3 % (95-100) L 10/12/23 04:34 Carboxyhemoglobin 1.2 %THgb (0.4-20.1) 10/12/23 04:34 Methemoglobin 0.4 % (0.4-1.5) 10/12/23 04:34 Total Hemoglobin 11.2 g/dL (12-16) L 10/12/23 04:34 Sodium 135.0 mmol/L (131-143) 10/12/23 04:34 Potassium 3.2 mmol/L (3.5-5.0) L 10/12/23 04:34 Glucose 94.0 mg/dL (70-115) 10/12/23 04:34 Ionized Calcium 1.2 mmol/L (1.1-1.4) 10/12/23 04:34 O2 Delivery Device Nc 10/12/23 04:34 O2 Liters/Min 3.0 % 10/12/23 04:34 FiO2 90.0 % 10/10/23 11:02 Group Insurance Special Agent ID [email or web address] 10/12/23 04:34 Sodium 137 mmol/L (136-145) 10/11/23 04:42 Potassium 4.0 mmol/L (3.5-5.1) 10/11/23 04:42 Chloride 99 mmol/L (98-107) 10/11/23 04:42 Carbon Dioxide 24 mmol/L (22-29) 10/11/23 04:42 Anion Gap 18.0 (5-19) 10/11/23 04:42 BUN 11 mg/dL (8-23) 10/11/23 04:42 Creatinine 0.6 mg/dL (0.5-0.9) 10/11/23 04:42 GFR Calculation Not Reportable 10/11/23 04:42 Glucose 124 mg/dL (65-115) H 10/11/23 04:42 Calculated Osmolality 285 mOsm/kg (285-295) 10/11/23 04:42 Calcium 9.4 mg/dL (8.5-10.5) 10/11/23 04:42 Total Bilirubin 0.2 mg/dL (0.15-1.2) 10/11/23 04:42 AST 19 U/L (0-32) 10/11/23 04:42 ALT 15 U/L (0-33) 10/11/23 04:42 Alkaline Phosphatase 77 U/L (35-105) 10/11/23 04:42 Lactate Dehydrogenase 274 U/L (135-214) H 10/11/23 04:42 NT-Pro-B Natriuret Pep 609 pg/mL (0-450) H 10/10/23 11:15 Total Protein 6.3 g/dL (6.6-8.7) L 10/11/23 04:42 Albumin 3.2 g/dL (3.5-5.2) L 10/11/23 04:42 Globulin 3.1 g/dL (1.3-4.6) 10/11/23 04:42 Fluid Albumin 25.0 g/dL 10/11/23 10:55 Fluid Creatinine 0.49 (0.5-0.9) L 10/11/23 10:55 Pleural pH 7.00 (6.5-7.5) 10/11/23 10:55 Pleural Total Protein 3.7 g/dL 10/11/23 10:55 Pleural LDH 336 U/L 10/11/23 10:55 Pleural Glucose 124.0 mg/dL 10/11/23 10:55 Influenza Type A Ag negative (Negative) 10/10/23 11:16 Influenza Type B Ag negative (Negative) 10/10/23 11:16 SARS-CoV-2 Ag (Rapid) negative (Negative) 10/10/23 11:16 Vitals Last Vital Signs Temp 98.2 F 10/12/23 11:49 Pulse 92 10/12/23 11:57 Resp 20 H 10/12/23 11:57 BP 108/73 10/12/23 11:49 Pulse Ox 95 10/12/23 11:57 O2 Del Method Nasal Cannula 10/12/23 11:57 O2 Flow Rate 3 10/12/23 11:57 FiO2 40 10/11/23 04:15 Discharge Plan Discharge Patient Disposition: Home Health Service Condition: Stable Prescriptions: Continued oxycodone 5 mg tablet 5 - 10 mg PO BID PRN (Reason: Pain) Other Ambulatory Orders: DME: Oxygen (Order) Location: None Selected Ordered By: Batsheva Maki Referrals: [facility] [Outside] [facility]) [Outside] Jasper Johnson MD [Hospitalist] - (We have notified your physician's clinic of the need for a follow-up appointment to be scheduled. If you have not heard from them within the next 2 business days, please call them directly. SENT REFERRAL 10-12-23) Natali Wyman DO [Primary Care Provider] - 10/27/23 2:00 pm Patient Instructions: Opioid Safety Discharge Attestations Time Spent in Discharge Care*: greater than 30 min Quality Metrics Clinical Quality Measures [ No reported AMI, CVA or VTE this stay] Coding Level of Care Code Acute Code for Chg Fwd Diagnoses Pleural effusion on right J90 Hypoxic respiratory failure J96.91 Squamous cell lung cancer C34.90
== END 2023-10-12 14:17 | disposition home health service (06) | DRG 186 ==
LOC: ER 11:12 → MEDSURG 12:39
PROVIDERS: Internal Medicine; Admitting Provider Student in an Organized Health Care Education/Training Program; Emergency Provider Emergency Medicine; PCP Family Medicine; Visit Provider Student in an Organized Health Care Education/Training Program
DX: J90 Pleural effusion, not elsewhere classified (principal); J96.01 Acute respiratory failure with hypoxia; C34.31 Malignant neoplasm of lower lobe, right bronchus or lung; F17.200 Nicotine dependence, unspecified, uncomplicated; Z11.52 Encounter for screening for COVID-19; Z79.899 Other long term (current) drug therapy; Z92.3 Personal history of irradiation
CPT/HCPCS: 32555; 36415; 36600; 71045; 71275; 74018; 80051; 80053; 82042; 82330; 82570; 82805; 82945; 83615; 83880; 83986; 84157; 85025; 85610; 87015; 87040; 87070; 87075; 87116; 87205; 87206; 87426; 87801; 87804; 88112; 88305; 93005; 94640; 94660; 94664; 94760; 96365; 96367; 96375; 99291; J0456; J0696; J2270; J2930; J7050; J7613; Q0144; Q3014; Q9967

== ENCOUNTER 2023-10-18 16:23 | Emergency (ER) | payer MEDICARE, SELFPAY ==
[2023-10-18 16:28] VITALS: BP 102/62; PULSE 116; RESP 28; TEMP 36.3; O2SAT 84; BMI 21.7
--- NOTE | 2023-10-18 16:42 | XRR_ITS ---
PROCEDURE INFORMATION: Exam: XR Chest Exam date and time: 10/18/2023 4:49 PM Age: 73 years old Clinical indication: Dyspnea; Prior surgery; Surgery date: 6+ months; Surgery type: Port; Additional info: Dyspnea/cough TECHNIQUE: Imaging protocol: Radiologic exam of the chest. Views: 1 view. COMPARISON: CR XR chest 1V portable [id number] 10/11/2023 12:11 PM FINDINGS: Tubes, catheters and devices: Unchanged left-sided CVC Lungs: See Pleural spaces finding. Pleural spaces: There is near complete opacification of the right hemithorax probably due to a large pleural effusion. Can't exclude underlying atelectasis or infiltrate. Small foci of aerated lung is seen in the apex. Left lung is clear. Heart/Mediastinum: Right heart border is obscured. Bones/joints: Unremarkable. XR/XR chest 1V portable [id number] IMPRESSION: Near complete opacification of the right hemithorax probably due to a large pleural effusion.
[2023-10-18 16:47] VITALS: RESP 18; O2SAT 92
--- NOTE | 2023-10-18 17:01 | ED_ITS ---
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 She was to be evaluated for hospice today at the same time she tells me she is scheduled to begin a new immunosuppressive therapy at the end of this week. She has been getting her cancer treatments with oncology in [facility]. Evidently she has family there and wanted to have it done near her to where her family was she does live in [place]. There was talk of transferring her care to [place] during her last hospitalization but she wanted to pursue the immunotherapy so stayed at [facility]. She also has had increasing pain with inspiration. MD elicited complaint: shortness of breath, cough and pain with inspiration Pertinent past history: COPD Onset (ago): day(s) Timing: constant Severity: moderate Exacerbating factors: exertion, coughing and inspiration Relieving factors: nothing Associated symptoms: Reports chest congestion and chest pain; Deny abdominal pain or fever(s) Treatment prior to arrival: oxygen Related Data: Home oxygen amount: 4 liters Review of Systems 2 Const: Denies: fever(s) or chills Card: Reports: chest pain; Denies: edema Resp: Reports: dyspnea, non-productive cough, wheezing, pain on inspiration and chest congestion GI: Denies: abdominal pain : Denies: dysuria, urinary frequency or urinary urgency Musc: Denies: neck pain or back pain Skin/Breast: Denies: rash PFSH ED 2 PFSH: Medical History Squamous cell lung cancer Social History Smoking and tobacco/nicotine status: current every day tobacco/nicotine user Physical Exam 2 Const: GENERAL APPEARANCE: cooperative and comfortable O RIENTATION/CONSCIOUSNESS: Yes awake, Yes oriented to person, Yes oriented to place and Yes oriented to time HENMT: COMMON NORMALS: normocephalic, atraumatic and hearing grossly normal bilaterally HEAD & SCALP: normocephalic and atraumatic Resp: EFFORT & INSPECTION: Yes uses accessory muscles OTHER: Absent breath sounds on the right side. Wheezes and rhonchi on left. Cardio: COMMON NORMALS: regular rate, regular rhythm and No murmurs present (Cardio) RATE: regular rate RHYTHM: regular rhythm GI: COMMON NORMALS: Soft to palpation and No hepatosplenomegaly present A USCULTATION: Yes normoactive bowel sounds PALPATION: Yes Soft to palpation, No Tenderness to palpation present (GI), No Guarding due to palpation present (GI) and Yes No hepatosplenomegaly present Extremity: COMMON NORMALS: normal to inspection, capillary refill normal, no clubbing, cyanosis or edema, no calf tenderness and no pedal edema Neuro: SENSORIUM/ORIENTATION: Yes oriented to person, Yes oriented to place and Yes oriented to time Skin: COMMON NORMALS: no rashes or lesions noted GENERAL SKIN EXAM: no rashes or lesions noted Course 2 Vital Signs: Vital signs: Vital Signs Temperature 97.4 F L 10/18/23 16:28 Pulse Rate 116 H 10/18/23 16:28 Respiratory Rate 18 10/18/23 16:47 Blood Pressure 118/74 10/18/23 17:34 Pulse Oximetry 96 10/18/23 17:34 Oxygen Delivery Me thod Nasal Cannula 10/18/23 17:34 Oxygen Flow Rate 4 10/18/23 17:34 MDM - SOB/Dyspnea Medical Decision Making Completely opacified right lung field. Will leave her if pleural effusion is recurred secondary to her cancer. She is maintaining her sats on her usual 4 L by nasal cannula at this time. Discussed different options with her wanted to be to do a thoracentesis although it is too late in the day there is nobody available to do it we have to do it tomorrow morning she would prefer to go home. More ideally she should have a thoracic drain placed so that she does not have to go through recurrent thoracentesis this was drained just 7 days ago and is actually larger than at the time it was drained previously. I discussed Dr. Dickerson is on-call he agrees and will see the patient in the next day or 2 and try to schedule the drain placed this week yet. Discussed with the patient she prefers this plan to the alternative of admission for thoracentesis in the morning. Discussed with her is at the bedside. She is advised to return if she has any further problems. Medical Records I reviewed the patient's medical records. Lab Data I reviewed the patient's lab results. 10/18/23 17:05 10/18/23 17:05 Labs/Radiology: Radiology Impressions Chest X-Ray 10/18/23 16:42 IMPRESSION: Near complete opacification of the right hemithorax probably due to a large pleural effusion. Laboratory Results WBC 8.57 10^3/uL (3.29-11.43) 10/18/23 17:05 RBC 4.40 10^6/uL (3.85-5.65) 10/18/23 17:05 Hgb 12.40 g/dL (11.27-16.99) 10/18/23 17:05 Hct 39.6 % (36-47) 10/18/23 17:05 MCV 90.0 fl (85-98) 10/18/23 17:05 MCH 28.2 pg (27-33) 10/18/23 17:05 MCHC 31.3 g/dL (30-55) 10/18/23 17:05 RDW 15.9 % (12.1-15.1) H 10/18/23 17:05 Plt Count 401 10^3/cmm (157-399) H 10/18/23 17:05 MPV 10.4 fL (7.4-10.4) 10/18/23 17:05 Neut % (Auto) 72.2 % 10/18/23 17:05 Lymph % (Auto) 13.2 % 10/18/23 17:05 Stokes % (Auto) 11.1 % 10/18/23 17:05 Eos % (Auto) 1.8 % 10/18/23 17:05 Baso % (Auto) 0.8 % 10/18/23 17:05 Neut # (Auto) 6.19 10^3/uL (1.8-7.7) 10/18/23 17:05 Lymph # (Auto) 1.1 10^3/uL (0.8-4.8) 10/18/23 17:05 Stokes # (Auto) 1.0 10^3/uL (0.2-0.9) H 10/18/23 17:05 Eos # (Auto) 0.2 10^3/uL (0.0-0.8) 10/18/23 17:05 Baso # (Auto) 0.1 10^3/uL (0.0-0.1) 10/18/23 17:05 Nucleated RBC % (auto) 0 % 10/18/23 17:05 Nucleated RBCs # 0.0 /100WBC 10/18/23 17:05 PT 13.80 SECONDS (12.1-14.9) 10/18/23 17:05 INR 1.02 (0.8-1.2) 10/18/23 17:05 APTT 37.0 SECONDS (23.9-36.7) H 10/18/23 17:05 Sodium 135 mmol/L (136-145) L 10/18/23 17:05 Potassium 3.5 mmol/L (3.5-5.1) 10/18/23 17:05 Chloride 98 mmol/L (98-107) 10/18/23 17:05 Carbon Dioxide 27 mmol/L (22-29) 10/18/23 17:05 Anion Gap 13.5 (5-19) 10/18/23 17:05 BUN 12 mg/dL (8-23) 10/18/23 17:05 Creatinine 0.8 mg/dL (0.5-0.9) 10/18/23 17:05 GFR Calculation Not Reportable 10/18/23 17:05 Glucose 119 mg/dL (65-115) H 10/18/23 17:05 Calculated Osmolality 281 mOsm/kg (285-295) L 10/18/23 17:05 Calcium 9.1 mg/dL (8.5-10.5) 10/18/23 17:05 Total Bilirubin 0.2 mg/dL (0.15-1.2) 10/18/23 17:05 AST 15 U/L (0-32) 10/18/23 17:05 ALT 11 U/L (0-33) 10/18/23 17:05 Alkaline Phosphatase 82 U/L (35-105) 10/18/23 17:05 Total Protein 6.5 g/dL (6.6-8.7) L 10/18/23 17:05 Albumin 3.2 g/dL (3.5-5.2) L 10/18/23 17:05 Globulin 3.3 g/dL (1.3-4.6) 10/18/23 17:05 All radiology interpretation(s) finalized by discharge Discharge Plan Discharge Patient Disposition: Home Clinical Impression: Pleural effusion on right, Squamous cell lung cancer Condition: Stable Prescriptions: New oxycodone 10 mg tablet 10 mg PO Q6H PRN (Reason: pain) Qty: 30 0RF promethazine 25 mg tablet 25 mg PO Q6H PRN (Reason: nausea and vomiting) Qty: 20 0RF Discontinued oxycodone 5 mg tablet 5 - 10 mg PO BID PRN (Reason: Pain) Discharge Orders: Discharge ED (Routine); Ordered 10/18/23 Ordered By: Manny Foy Referrals: Will Gaines MD [Physician] - (Dr. Dickerson's office will call with an appointment to tomorrow) Natali Wyman DO [Primary Care Provider] - Discharge Diet: Usual diet Discharge Activity: Limit activity as instructed Patient Instructions: Opioid Safety, Pain Management Activity Restrictions/Additional Instructions: Thank you for choosing [facility] for your healthcare needs today. Please realize this is an emergency room and that we are providing you with a medical screening exam and this may not be complete and all inclusive of all the testing and or work up that you may need to determine your ailment or severity of your illness. It is very important that you follow up as instructed or that you return to the Emergency Department should you have concerns or if your condition changes or worsens in any way. You are seen today for shortness of breath you have a very large right pleural effusion related to your cancer. After discussion with Dr. Dickerson we recommend that you have a drain placed to allow for the fluid in the lung to be drained regularly in a much easier fashion then repeated thoracentesis. Keep your oxygen at 4 to 5 L/min. You were given prescription for oxycodone and promethazine for pain nausea and vomiting. Recommend that you start Elena-Colace 1 pill twice daily to prevent constipation with the narcotics. Dr. Dickerson's office will call you tomorrow. Coding Level of Care Code ED Change Manager for Pradeep Prabhakar
[2023-10-18 17:30] LABS: Basophils # 0.1 10^3/uL (0.0-0.1); Basophils % 0.8 %; Eosinophils # 0.2 10^3/uL (0.0-0.8); Eosinophils % 1.8 %; Hematocrit 39.6 % (36-47); Lymphocytes # 1.1 10^3/uL (0.8-4.8); Lymphocytes % 13.2 %; Mean Corpuscular HGB Conc 31.3 g/dL (30-55); Mean Corpuscular Hemoglobin 28.2 pg (27-33); Mean Platelet Volume 10.4 fL (7.4-10.4); Monocytes % 11.1 %; Neutrophils # 6.19 10^3/uL (1.8-7.7); Neutrophils % 72.2 %; Nucleated Red Blood Cells % 0 %; Platelet Count 401 10^3/cmm (157-399); Red Cell Distribution Width 15.9 % (12.1-15.1); White Blood Count 8.57 10^3/uL (3.29-11.43)
[2023-10-18 17:34] VITALS: BP 118/74; O2SAT 96
[2023-10-18 17:46] LABS: INR 1.02 (0.8-1.2)
[2023-10-18 17:59] LABS: Alanine Aminotransferase 11 U/L (0-33); Albumin Level 3.2 g/dL (3.5-5.2); Alkaline Phosphatase 82 U/L (35-105); Anion Gap 13.5 (5-19); Aspartate Amino Transferase 15 U/L (0-32); Blood Urea Nitrogen 12 mg/dL (8-23); Calcium 9.1 mg/dL (8.5-10.5); Carbon Dioxide 27 mmol/L (22-29); Chloride 98 mmol/L (98-107); Creatinine Clr Calc Pharmacy 47.5238; Globulin 3.3 g/dL (1.3-4.6); Glucose 119 mg/dL (65-115); Osmolality Calculated 281 mOsm/kg (285-295); Potassium 3.5 mmol/L (3.5-5.1); Sodium 135 mmol/L (136-145); Total Bilirubin 0.2 mg/dL (0.15-1.2); Total Protein 6.5 g/dL (6.6-8.7)
== END 2023-10-18 17:50 | disposition home or self-care (01) ==
PROVIDERS: Emergency Provider Family Medicine; PCP Family Medicine
DX: J90 Pleural effusion, not elsewhere classified (principal); C34.90 Malignant neoplasm of unspecified part of unspecified bronchus or lung; Z72.0 Tobacco use
CPT/HCPCS: 36415; 71045; 80053; 85025; 85610; 85730; 99284

== ENCOUNTER 2023-10-20 14:31 | Day surgery (SDC) | payer MEDICARE, SELFPAY ==
[2023-10-20] MEDS: sodium chloride 0.9% 1,000 ML 30 ML IV (13:20)
[2023-10-20 13:21] VITALS: BMI 19.8
[2023-10-20 14:00] VITALS: BP 103/65; PULSE 94; RESP 18; TEMP 36.8; O2SAT 97
--- NOTE | 2023-10-20 14:09 | XRR_ITS ---
PROCEDURE INFORMATION: Exam: XR Chest Exam date and time: 10/20/2023 3:23 PM Age: 73 years old Clinical indication: Device placement; Other: Pleurx drain placemen; Prior surgery; Surgery date: Post-operative (0-2 days); Additional info: Post pleurx drain placement, gi prep room 3 TECHNIQUE: Imaging protocol: Radiologic exam of the chest. Views: 1 view. COMPARISON: CR (CHEST, ) 10/18/2023 4:49 PM FINDINGS: Tubes, catheters and devices: Interval placement right chest tube with decrease in right pleural effusion. Residual small to moderate right effusion is present. Ill-defined airspace ground-glass opacities in the right lung are present. Right mediastinal widening again noted. Left unremarkable for mild coarsening of the interstitium. No left pleural abnormality. Cardiomediastinal contours obscured in the right by adjacent pleuroparenchymal abnormalities. Left subclavian central line remains in place. Lungs: See Tubes, catheters and devices finding. Pleural spaces: See Tubes, catheters and devices finding. Heart/Mediastinum: See Tubes, catheters and devices finding. Bones/joints: No significant pathology. XR/XR chest 1V portable [id number] IMPRESSION: Interval placement of right chest tube with decrease in right effusion.
--- NOTE | 2023-10-20 14:17 | PM.OP ---
Operative Report Date of procedure: October 20, 2023 Surgeon: Will Gaines MD Procedure: Procedure: DATE OF PROCEDURE: 10/20/2023 PREOPERATIVE DIAGNOSIS: Recurrent right pleural effusion causing symptomatic dyspnea. POSTOPERATIVE DIAGNOSIS: Recurrent right pleural effusion causing symptomatic dyspnea. PROCEDURE PERFORMED: [id number]: Insertion of tunneled Pleurx catheter in the right pleural cavity SURGEON: Will Gaines MD [facility] ANESTHESIA: Moderate sedation as per anesthesia team ASA: 3 INDICATION FOR PROCEDURE: Recurrent right pleural effusion causing symptomatic dyspnea. In an effort to palliate respiratory symptoms, PleurX catheter placement was considered for home drainage. The patient and his family understood the risks and possible complications of the procedure and wished to proceed. DESCRIPTION OF PROCEDURE: The patient was brought to the operating room. She was placed supine on the operating table. She was connected to telemetry, oxygen, hemodynamic monitoring. After doing appropriate timeout, patient was placed on Precedex by anesthesia team for moderate sedation. The patient was then positioned with the head up and a roll under the right shoulder. The right chest and upper abdomen were prepped and draped in the usual sterile fashion. 10 cc 1% local lidocaine is used for local anesthesia. A small counterincision was made in the right upper quadrant area. Through the anterior axillary line area, the pleural space was accessed by Seldinger technique using ultrasound guidance. The counterincision was made around the guidewire and then the indwelling PleurX catheter was tunneled from the right upper quadrant small incision to the one overlying the ribs. After appropriate dilation a sheath introducer was then passed over the wire and then the PleurX catheter was placed through the sheath introducer. There was good return of fluid. 1.5 liters of hemorrhagic fluid was withdrawn slowly as the small counterincision was closed with Monocryl stitch. The catheter was capped off, and sterile dressings were applied. The patient tolerated the procedure well without any complications. The patient vitals remained stable. Sponge and needle count was correct at the end of the case. OPERATIVE FINDINGS: 1.5 liters of straw-colored was withdrawn before clamping the drainage tube. There were overt no bleeding complications. Estimated blood loss: 5 to 10 cc Immediate complications: None Related Problem List Diagnoses (1) Pleural effusion on right: (2) Small cell lung cancer:
[2023-10-20 14:32] VITALS: BP 93/66; PULSE 96; RESP 18; O2SAT 97
--- NOTE | 2023-10-20 14:38 | ANES.PREANE2 ---
Pre-Anesthetic Assessment Height/Weight: Height 1.55 m Weight 47.627 kg Temp Pulse Resp BP Pulse Ox O2 Del Method O2 Flow Rate 98.2 F 96 18 93/66 97 Nasal Cannula 3 10/20/23 14:00 10/20/23 14:32 10/20/23 14:32 10/20/23 14:32 10/20/23 14:32 10/20/23 14:32 10/20/23 14:32 Operation Date: 10/20/23 13:50 Proposed Procedures p 90712 Pleurx Catheter Placement J90(Not Applicable) - Will Gaines MD Familial anesthetic complications: none Was Beta Mauricio taken within 24 hours: N/A Was Clonidine taken within 24 hours: N/A Last intake: Intake Last Liquid Date 10/20/23 Last Liquid Time 06:30 Last Solid Date 10/19/23 Social Tobacco and No alcohol Exam alert, oriented x 3 and regular rate & rhythm wheezing Airway Submandibular: within normal limits Cervical ROM: within normal limits Mallampati: Class I Dentition: false Pulmonary Chronic Obstructive Pulmonary Disease and Shortness of Breath Lung CA, pleural effusion Anesthetic Plan ASA status: 3 Anesthesia: MAC Medications/Allergies Home Medications Medication Instructions Recorded Confirmed Last Taken Type oxycodone 10 mg tablet 10 mg PO Q6H PRN pain #30 tabs 10/18/23 10/20/23 10/19/23 Rx promethazine 25 mg tablet 25 mg PO Q6H PRN nausea and 10/18/23 10/20/23 10/19/23 Rx vomiting #20 tabs albuterol sulfate 2.5 mg/3 mL 2.5 mg inhalation Q4H PRN 10/20/23 10/20/23 10/19/23 History (0.083 %) solution for nebulization Shortness Of Breath Allergies Allergy/AdvReac Type Severity Reaction Status Date / Time Sulfa (Sulfonamide Allergy ADR-Vomitin Verified 10/20/23 13:20 Antibiotics) g Current Medications Generic Name Dose Route Start Last Admin Trade Name Freq PRN Reason Stop Dose Admin Sodium Chloride 1,000 mls @ 30 mls/hr 10/20/23 13:30 10/20/23 14:21 Sodium Chloride 0.9% IV Infused .Q24H MIA Infusion PFSH Anesthesia Medical History Squamous cell lung cancer Social History Smoking and tobacco/nicotine status: current every day tobacco/nicotine user cigarettes Packs smoked per day: 2 Years cigarettes smoked: 67 [ Other cigarette details: Started at 8] Data Anesthesia Cardiac Studies: No Data to Display
--- NOTE | 2023-10-20 14:39 | ANE.PACU2 ---
Inpatient post-anesthesia follow up: Airway intact: Yes Vital signs: Temperature 98.2 F Pulse Rate 96 Respiratory Rate 18 Blood Pressure 93/66 Pulse Oximetry 97 Oxygen Delivery Me thod Nasal Cannula Oxygen Flow Rate 3 Fraction of Inspir ed Oxygen Hydration adequate: Yes Nausea and vomiting: No Pain level: 2 Mental status: Baseline
== END 2023-10-20 14:45 | disposition home or self-care (01) ==
LOC: GILAB 14:31
PROVIDERS: PCP Family Medicine; Visit Provider Internal Medicine Pulmonary Disease
PROC: (CPT 32550; principal; 2023-10-20 13:40)
DX: J90 Pleural effusion, not elsewhere classified (principal); R06.00 Dyspnea, unspecified; C34.90 Malignant neoplasm of unspecified part of unspecified bronchus or lung; J44.9 Chronic obstructive pulmonary disease, unspecified; F17.210 Nicotine dependence, cigarettes, uncomplicated
CPT/HCPCS: 32550; 71045; 99205; C1729; J7030

== ENCOUNTER 2023-10-27 12:08 | Day surgery (SDC) | payer MEDICARE, SELFPAY ==
[2023-10-27 12:26] VITALS: BP 96/65; PULSE 116; RESP 18; TEMP 36.3; O2SAT 87; BMI 19.8
== END 2023-10-27 12:49 | disposition home or self-care (01) ==
PROVIDERS: PCP Family Medicine; Visit Provider Internal Medicine Pulmonary Disease
DX: D49.9 Neoplasm of unspecified behavior of unspecified site (principal); J91.0 Malignant pleural effusion
CPT/HCPCS: G0463

== ENCOUNTER 2023-11-01 15:20 | Day surgery (SDC) | payer MEDICARE, SELFPAY ==
[2023-11-01 15:20] VITALS: BP 98/66; PULSE 117; RESP 24; TEMP 36.7; O2SAT 96; BMI 19.8
== END 2023-11-01 16:00 | disposition home or self-care (01) ==
LOC: GILAB 15:21
PROVIDERS: PCP Family Medicine; Visit Provider Internal Medicine Pulmonary Disease
DX: J90 Pleural effusion, not elsewhere classified (principal); F17.211 Nicotine dependence, cigarettes, in remission; Z99.81 Dependence on supplemental oxygen; C34.31 Malignant neoplasm of lower lobe, right bronchus or lung
CPT/HCPCS: 99214